=== PATIENT | female | born 1955 | race African-American/Black ===

== ENCOUNTER 2017-09-13 20:23 | Emergency (ER) | payer SELFPAY ==
[~2017-09-13] VITALS: Ht 157.5 cm; Wt 100.0 kg
[2017-09-13] MEDS ORDERED: KETOROLAC 15MG/ML VIAL IM ONE (21:00)
[2017-09-13] MEDS ORDERED: ONDANSETRON 4MG ODT PO ONE (21:00)
[2017-09-13] MEDS ORDERED: OXYCODONE HCL/ACETAMINOPHEN 5/325MG TABLET PO ONE (21:00)
[2017-09-13] MEDS ORDERED: FENTANYL CITRATE/PF 50MCG/ML 2ML VIAL IM ONE (22:30)
[2017-09-13 23:18] VITALS: BP 127/82
== END 2017-09-13 23:15 | disposition home or self-care (01) ==
LOC: ER 20:56
DX: M54.5 Low back pain (principal); R11.0 Nausea; M25.552 Pain in left hip; M54.32 Sciatica, left side; E11.9 Type 2 diabetes mellitus without complications
CPT/HCPCS: 93971; 96372; 99284; J1885; J3010; Q0162; Z7610